=== PATIENT | female | born 1980 | race African-American/Black ===

== ENCOUNTER 2023-04-17 08:15 | Emergency (ER) | payer BC, MEDICAID, OTHER ==
[~2023-04-17] VITALS: Ht 165.1 cm; Wt 77.0 kg
[2023-04-17 08:26] VITALS: O2SAT 99
[2023-04-17 10:18] VITALS: BP 120/78; PULSE 95; RESP 18; TEMP 98.5
== END 2023-04-17 10:20 | disposition home or self-care (01) ==
LOC: ER 08:15
DX: B34.9 Viral infection, unspecified (principal)
CPT/HCPCS: 36415; 84702; 99283